=== PATIENT | female | born 1980 | race Two or more races ===

== ENCOUNTER 2017-12-20 04:14 | Emergency (ER) | payer MEDICAID ==
[~2017-12-20] VITALS: Ht 165.1 cm; Wt 49.9 kg
--- NOTE | 2017-12-20 04:26 | NUR ---
PT PRESENTS TO ER C/O CP. PT STATES "IT FEELS LIKE AN ELEPHANT IS SITTING ON MY CHEST". PT PLACED ON MONITOR, AND EKG COMPLETED.
--- NOTE | 2017-12-20 04:57 | NUR ---
PT STATES SHE RECENTLY GOT OUT OF A REHAB FACILITY FOR REPORTED METH ABUSE. SHE STATED THAT SHE RELAPSED TODAY AND USED METH, HOWEVER, AND SHORTLY AFTER IS WHEN THE CP STARTED.
--- NOTE | 2017-12-20 05:41 | NUR ---
DR IONA BERRY MD AT BEDSIDE FOR MSE.
--- NOTE | 2017-12-20 06:10 | NUR ---
20G IV STARTED IN L HAND. PT HOWEVER STATED SHE WANTED IT "TAKEN OUT RIGHT NOW" AND THAT SHE'S "TOO SENSITIVE FOR AN IV" . IV REMOVED W/ CATHETER INTACT. PRESSURE APPLIED TO SITE. NO BLEEDING NOTED. NOTIFIED
--- NOTE | 2017-12-20 06:16 | NUR ---
Patient eloped from facility. ER physician notified.
== END 2017-12-20 06:25 | disposition left against medical advice (07) ==
LOC: ER 04:17
DX: R07.89 Other chest pain (principal); F15.10 Other stimulant abuse, uncomplicated
CPT/HCPCS: 93005; 99283; A4663